=== PATIENT | female | born 1960 | race Caucasian/White ===

== ENCOUNTER 2017-11-03 13:29 | Inpatient (IN) | payer MEDICAID, MEDICARE, OTHER ==
[~2017-11-03] VITALS: Ht 167.6 cm; Wt 91.6 kg
[~2017-11-03 13:29] MED LIST: ESTR0.3T26 PO; PROG200C15 PO; [UNRECOGNIZED DRUG - CODE] PO
[2017-11-03 13:54] LABS: BASOPHILS % (AUTO) 0.3 % (0.0-2.0); EOSINOPHILS % (AUTO) 1.5 % (0.0-6.0); HEMATOCRIT 37 % (33-45); HEMOGLOBIN 13.4 g/dL (11.5-14.8); LYMPHOCYTES # (AUTO) 1.6 /CMM (0.8-4.8); MEAN CORPUSCULAR HGB CONC 37 g/dl (31.0-36.0); MEAN CORPUSCULAR VOLUME 86 fL (82-100); MONOCYTES # (AUTO) 0.6 /CMM (0.1-1.30); MONOCYTES % (AUTO) 6.2 % (2.0-12.0); NEUTROPHILS # (AUTO) 7.1 /CMM (1.8-8.9); PLATELET COUNT (AUTO) 203 /CMM (150-450); RDW COEFFICIENT OF VARIATION 12.8 (11.5-15.0); RED BLOOD CELL COUNT(AUTO) 4.28 MIL/uL (4.0-5.2); WHITE BLOOD COUNT (AUTO) 9.4 K/uL (4.3-11.0)
[2017-11-03] MEDS ORDERED: OLANZAPINE 10 MG VIAL IM ONE ×2 (14:00→14:06)
[2017-11-03 14:02] LABS: CALCIUM, SERUM 9.6 mg/dL (8.5-10.1); CARBON DIOXIDE 22 mmol/L (21-32); CHLORIDE 105 mmol/L (98-107); CREATININE 1.2 mg/dL (0.6-1.3); GLUCOSE 109 mg/dL (74-106); POTASSIUM 3.7 mmol/L (3.5-5.1); SODIUM SERUM 138 mmol/L (136-145); UREA NITROGEN, BLOOD 23 mg/dL (7-18)
[2017-11-03 14:17] LABS: ACETAMINOPHEN 0 ug/ml (10-30); ALANINE AMINOTRANSFERASE 29 U/L (12-78); ALBUMIN 3.6 g/dL (3.4-5.0); ALCOHOL, BLOOD < 3 mg/dL (0-0); ALKALINE PHOSPHATASE 50 U/L (46-116); ASPARTATE AMINOTRANSFERASE 15 U/L (15-37); BILIRUBIN,DIRECT 0.1 mg/dL (0.0-0.2); BILIRUBIN,TOTAL 0.3 mg/dL (0.2-1.0)
--- NOTE | 2017-11-03 14:46 | NUR ---
GPS 211-B, LUDA SHAW
--- NOTE | 2017-11-03 15:37 | NUR ---
REPORT GIVENT TO MARION RODRIGUEZ FOR CONTINUITY OF CARE
--- NOTE | 2017-11-03 15:41 | NUR ---
PT TRANSPORTED BY JEANETTE TONY TO [facility]
--- NOTE | 2017-11-03 16:22 | NUR ---
GPS RN ADMITTING NOTE: PATIENT ADMITTED FROM ER PRIOR HOME PLACED ON 5150 HOLD FOR DTO, PER HOLD PER FAMILY PT BEEN BECOMING MORE AGITATED AND PARANOID THREATENING NEIGHBORS BELIEVES HER NEIGHBORS WORKING WITH [employer] AND SHE NEEDS TO PROTECT HERSELF ,FAMILY REPORTS NEIGHBORS IS AFRAID OF HER.UPON FACE TO FACE EVALUATION PATIENT A/O X2 PARANOID, CALM ,PT STATED I HACE SCHIZOPHRENIA. DR LARES NOTIFIED WITH STANDING ORDERS . ALL BELONGINGS CHECKED NO CONTRABAND FOUND.WILL CONTINUE MONITORING FOR SAFETY AND BEHAVIOR Q 15 MIN
[2017-11-03 16:48] VITALS: BP 109/86
--- NOTE | 2017-11-03 16:55 | NUR ---
GPS/RN BRENT MIKE STAFF SUBMARINE WARFARE OFFICER CALLED FOR ADMITTING ORDERS VIA [employer]CHANGE ADN MADE AWARE OF ADMISSION. SHE WILL RECONCILE THE MEDS.
[2017-11-03] MEDS ORDERED: MAGNESIUM HYDROXIDE 30 ML UDC PO PRN ×2 (17:00→17:30)
[2017-11-03] MEDS ORDERED: LORAZEPAM 0.5 MG TABLET PO PRN (17:00)
[2017-11-03] MEDS ORDERED: MAG HYDROX/AL HYDROX/SIMETH 30 ML UDC PO PRN ×2 (17:00→17:30)
[2017-11-03] MEDS ORDERED: Z GUARD REMEDY 2 OZ OINT TP PRN (17:30)
[2017-11-03] MEDS ORDERED: ACETAMINOPHEN 325 MG TABLET PO PRN (17:30)
[2017-11-03] MEDS ORDERED: ONDANSETRON HCL/PF 4 MG/2 ML VIAL IVP PRN (17:30)
[2017-11-03 20:00] VITALS: BP 114/72
[2017-11-04 07:02] LABS: BASOPHILS % (AUTO) 0.3 % (0.0-2.0); EOSINOPHILS % (AUTO) 1.5 % (0.0-6.0); HEMATOCRIT 40 % (33-45); HEMOGLOBIN 13.4 g/dL (11.5-14.8); LYMPHOCYTES % (AUTO) 13.9 % (20.0-44.0); MEAN CORPUSCULAR HGB CONC 34 g/dl (31.0-36.0); MEAN CORPUSCULAR VOLUME 88 fL (82-100); MONOCYTES # (AUTO) 0.6 /CMM (0.1-1.30); MONOCYTES % (AUTO) 8.3 % (2.0-12.0); NEUTROPHILS # (AUTO) 5.4 /CMM (1.8-8.9); PLATELET COUNT (AUTO) 207 /CMM (150-450); RDW COEFFICIENT OF VARIATION 13.8 (11.5-15.0); RED BLOOD CELL COUNT(AUTO) 4.53 MIL/uL (4.0-5.2); WHITE BLOOD COUNT (AUTO) 7.1 K/uL (4.3-11.0)
[2017-11-04 07:28] LABS: THYROID STIMULATING HORMONE 3.577 uIU/mL (0.358-3.74)
[2017-11-04 07:34] LABS: CALCIUM, SERUM 9.1 mg/dL (8.5-10.1); CREATININE 1.1 mg/dL (0.6-1.3); MAGNESIUM 1.9 mg/dL (1.8-2.4); PHOSPHORUS 2.7 mg/dL (2.5-4.9)
[2017-11-04 07:55] VITALS: BP 113/68
[2017-11-04] MEDS: NICOTINE PATCH (14MG) 14 MG PATCH.TD24 TD SCH (08:34)
[2017-11-04] MEDS: LEVOTHYROXINE SODIUM 125 MCG TABLET PO SCH (08:34)
[2017-11-04] MEDS ORDERED: ESTROGENS ESTERIFIED PO SCH (09:00)
[2017-11-04] MEDS ORDERED: PROGESTERONE,MICRONIZED 100 MG CAPSULE PO SCH ×2 (09:00)
[2017-11-04] MEDS: risperiDONE 1 MG TABLET PO SCH ×2 (12:37→16:09)
[2017-11-04] MEDS: BENZTROPINE MESYLATE (1 MG) 1 MG TABLET PO SCH (16:09)
[2017-11-04 16:13] VITALS: BP 116/76
[2017-11-04 20:00] VITALS: BP 99/62
[2017-11-04] MEDS: QUETIAPINE FUMARATE 100 MG TABLET PO SCH (22:16)
[2017-11-05 08:01] VITALS: BP 150/68
[2017-11-05] MEDS: BENZTROPINE MESYLATE (1 MG) 1 MG TABLET PO SCH ×2 (08:47→16:37)
[2017-11-05] MEDS: risperiDONE 1 MG TABLET PO SCH (08:47)
[2017-11-05] MEDS: NICOTINE PATCH (14MG) 14 MG PATCH.TD24 TD SCH (08:49)
[2017-11-05] MEDS: LEVOTHYROXINE SODIUM 125 MCG TABLET PO SCH (09:25)
[2017-11-05] MEDS ORDERED: risperiDONE 1 MG TABLET PO SCH (13:00)
--- NOTE | 2017-11-05 13:30 | NUR ---
RN NOTES ASKED PATIENT IF SHE CAN PROVIDE HER HOME MEDICATION PROMETRIUM PATIENT SAID SHE WILL CALL TO BRING IT. PHARMACIST SUSAN MADE AWARE.
[2017-11-05 16:14] VITALS: BP 114/56
[2017-11-05 19:47] VITALS: BP_SYST 127; BP_SYST 131; BP_DIAS 69; BP_DIAS 75
[2017-11-05] MEDS: QUETIAPINE FUMARATE 100 MG TABLET PO SCH (21:19)
[2017-11-06 08:00] VITALS: BP 102/71
[2017-11-06] MEDS: LEVOTHYROXINE SODIUM 125 MCG TABLET PO SCH (08:43)
[2017-11-06] MEDS: BENZTROPINE MESYLATE (1 MG) 1 MG TABLET PO SCH ×2 (08:43→16:54)
[2017-11-06] MEDS: NICOTINE PATCH (14MG) 14 MG PATCH.TD24 TD SCH (08:43)
[2017-11-06] MEDS: risperiDONE 1 MG TABLET PO SCH ×3 (09:08→16:54)
--- NOTE | 2017-11-06 12:21 | NUR ---
SW contacted pts , Farhad Hoang for collateral information regarding events that led to pts hospitalization (i.e. tarasoff). CAT received a voicemail recording stating, "person is unavailable right now please try again later." CAT also contacted pts contact telephone # (found on face sheet) and received a recording stating, "You have reached a # that has been disconnected or is no longer in service." CAT will follow up.
--- NOTE | 2017-11-06 12:36 | NUR ---
CAT contacted the [employer], [address] [place] [address] [phone] for a tarasoff report. CAT spoke to [facility] Physical Therapist, Junior (employee # [id number]) who obtained information provided from 5150 report. Per Officer Junior, another traffic officer will contact this writing CAT back for additional information. CAT will follow up.
--- NOTE | 2017-11-06 13:56 | NUR ---
CAT received a call back from Officer Burt requesting additional information regarding pts neighbor. SW provided information found on the 4290 report. Officer Burt reported going out and conducting a visit (to the pts home) and speaking with her in order to gather additional information regarding the neighbor. Officer Burt agreed to call SW back with an update. CAT will follow up.
[2017-11-06] MEDS: DIVALPROEX SODIUM 250 MG TABLET.DR PO SCH ×2 (14:43→16:54)
[2017-11-06 16:00] VITALS: BP 113/57
--- NOTE | 2017-11-06 17:01 | NUR ---
Initial Discharge Plan: Pt resides at [address] [place] [id number]; ; husbands cell #. Upon discharge pt would like to return home. SW contacted pts , Farhad Hoang, for collateral information. Pts agreed that pt could return home once she is stable. Pts also agreed to pick her up from the hospital. SW will follow up to ensure pt is safely and properly discharged.
--- NOTE | 2017-11-06 17:02 | NUR ---
CAT received a call back from Officer Burt who stated having visited pt 's home for additional identifying information about the neighbor. Per Officer, pts reported not knowing who Melissa was. In addition, Officer Burt reported having conducted a visit to the neighbors home and the person who answered the door denied a person named Melissa lived in the home. SW informed Officer Burt having talked to pts on this date and he admitting that pt has had issues with the "new neighbor." Officer Burt agreed to follow up pts regarding information disclosed. CAT asked Officer Burt for a follow up call. SW will follow up to ensure pt is safely and adequately discharged.
[2017-11-06 19:34] VITALS: BP 132/76
[2017-11-06] MEDS: QUETIAPINE FUMARATE 100 MG TABLET PO SCH (22:00)
--- NOTE | 2017-11-06 22:30 | NUR ---
GPS RN NOTES: PATIENT REFUSED HER SEROQUEL 100 MG PO, PER PATIENT IT MAKES HER VERY SLEEPY DURING THE DAY AND SHE DOESN'T LIKE THE EFFECTS OF IT. OFFERED IT TO THE PATIENT 3X BUT SHE STILL REFUSED. WILL ENDORSE THE SAID COMPLAIN TO THE DAY SHIFT NURSE.
[2017-11-07 08:00] VITALS: BP 122/70
[2017-11-07] MEDS: BENZTROPINE MESYLATE (1 MG) 1 MG TABLET PO SCH ×2 (08:15→16:49)
[2017-11-07] MEDS: LEVOTHYROXINE SODIUM 125 MCG TABLET PO SCH (08:15)
[2017-11-07] MEDS: risperiDONE 1 MG TABLET PO SCH ×4 (08:15→20:37)
[2017-11-07] MEDS: DIVALPROEX SODIUM 250 MG TABLET.DR PO SCH ×2 (08:15→12:09)
[2017-11-07] MEDS: NICOTINE PATCH (14MG) 14 MG PATCH.TD24 TD SCH (08:17)
--- NOTE | 2017-11-07 14:34 | NUR ---
SW met with pts , Farhad Hoang, in the hospital. Pts brought in pts medications for the nursing staff. SW discussed discharge plan with pt and pts which they agreed pt would return home. Pt agreed to discharge to her when she was ready to do so. SW will ensure pt is safely discharged.
[2017-11-07 16:00] VITALS: BP_SYST 100; BP_SYST 141; BP_DIAS 60; BP_DIAS 88
[2017-11-07 20:01] VITALS: BP 160/76
[2017-11-07] MEDS: DIVALPROEX SODIUM 500 MG TABLET.DR PO SCH (20:37)
[2017-11-08] MEDS: ACETAMINOPHEN 325 MG TABLET PO PRN (01:38)
[2017-11-08 01:40] VITALS: BP 129/98
[2017-11-08 06:57] LABS: BASOPHILS % (AUTO) 0.1 % (0.0-2.0); EOSINOPHILS % (AUTO) 1.7 % (0.0-6.0); HEMATOCRIT 39 % (33-45); HEMOGLOBIN 13.3 g/dL (11.5-14.8); LYMPHOCYTES # (AUTO) 1.1 /CMM (0.8-4.8); LYMPHOCYTES % (AUTO) 14.1 % (20.0-44.0); MEAN CORPUSCULAR HGB CONC 35 g/dl (31.0-36.0); MEAN CORPUSCULAR VOLUME 87 fL (82-100); MONOCYTES # (AUTO) 0.6 /CMM (0.1-1.30); MONOCYTES % (AUTO) 7.1 % (2.0-12.0); NEUTROPHILS # (AUTO) 6.1 /CMM (1.8-8.9); PLATELET COUNT (AUTO) 185 /CMM (150-450); RDW COEFFICIENT OF VARIATION 13.4 (11.5-15.0); RED BLOOD CELL COUNT(AUTO) 4.46 MIL/uL (4.0-5.2); WHITE BLOOD COUNT (AUTO) 7.9 K/uL (4.3-11.0)
[2017-11-08 07:20] LABS: ALBUMIN 3.4 g/dL (3.4-5.0); BILIRUBIN,TOTAL 0.3 mg/dL (0.2-1.0); CALCIUM, SERUM 9.3 mg/dL (8.5-10.1); CREATININE 0.9 mg/dL (0.6-1.3); POTASSIUM 4.2 mmol/L (3.5-5.1); TOTAL PROTEIN, SERUM 7.9 g/dL (6.4-8.2)
[2017-11-08 08:00] VITALS: BP 142/73
[2017-11-08] MEDS: BENZTROPINE MESYLATE (1 MG) 1 MG TABLET PO SCH ×2 (08:01→16:45)
[2017-11-08] MEDS: risperiDONE 1 MG TABLET PO SCH ×4 (08:02→20:16)
[2017-11-08] MEDS: LEVOTHYROXINE SODIUM 125 MCG TABLET PO SCH (08:02)
[2017-11-08] MEDS: DIVALPROEX SODIUM 250 MG TABLET.DR PO SCH ×2 (08:02→12:38)
[2017-11-08] MEDS: NICOTINE PATCH (14MG) 14 MG PATCH.TD24 TD SCH (08:03)
--- NOTE | 2017-11-08 08:45 | NUR ---
GPS RN NOTE: PATIENT PACING IN THE HALLWAY CRYING AND YELLING, ANXIOUS , ATIVAN 1 MG PO PRN GIVEN PER ORDER ,VSS , WILL CONTINUE MONITORING FOR SAFETY AND BEHAVIOR Q 15 MIN
[2017-11-08] MEDS: MENEST PO SCH (11:30)
--- NOTE | 2017-11-08 14:42 | NUR ---
CAT contacted Araseli Rosario [phone] Mgr. for reauthorization on this date. CAT provided clinicals over [facility]. CAT will follow up.
--- NOTE | 2017-11-08 15:52 | NUR ---
SW received a call from Araseli Rosario [phone] Fan Mail Editor. confirming that pt was approved until 11/10/17. Collection Systems Administrator will follow up on 11/10/17 per Erinn.
[2017-11-08 16:00] VITALS: BP 108/56
[2017-11-08 20:00] VITALS: BP 120/82
[2017-11-08] MEDS: DIVALPROEX SODIUM 500 MG TABLET.DR PO SCH (20:16)
[2017-11-08 20:18] VITALS: BP 120/82
[2017-11-08 22:49] VITALS: BP 110/67
[2017-11-08] MEDS: TEMAZEPAM 7.5 MG CAPSULE PO PRN (23:46)
[2017-11-09] MEDS: LEVOTHYROXINE SODIUM 125 MCG TABLET PO SCH (07:30)
[2017-11-09] MEDS: risperiDONE 1 MG TABLET PO SCH ×4 (08:00→21:01)
[2017-11-09] MEDS: DIVALPROEX SODIUM 250 MG TABLET.DR PO SCH ×2 (08:00→13:03)
[2017-11-09 08:57] VITALS: BP 130/80
[2017-11-09] MEDS: NICOTINE PATCH (14MG) 14 MG PATCH.TD24 TD SCH (09:23)
[2017-11-09] MEDS: BENZTROPINE MESYLATE (1 MG) 1 MG TABLET PO SCH ×2 (09:23→16:30)
[2017-11-09] MEDS: MENEST PO SCH (09:25)
[2017-11-09 16:00] VITALS: BP_SYST 122; BP_SYST 142; BP_DIAS 58; BP_DIAS 68
[2017-11-09] MEDS: ACETAMINOPHEN 325 MG TABLET PO PRN (18:35)
[2017-11-09 20:00] VITALS: BP 125/65
[2017-11-09] MEDS: DIVALPROEX SODIUM 500 MG TABLET.DR PO SCH (21:01)
[2017-11-09] MEDS: TEMAZEPAM 7.5 MG CAPSULE PO PRN (22:11)
[2017-11-10 08:00] VITALS: BP 132/70
[2017-11-10] MEDS: risperiDONE 1 MG TABLET PO SCH ×4 (08:37→20:35)
[2017-11-10] MEDS: LEVOTHYROXINE SODIUM 125 MCG TABLET PO SCH (08:37)
[2017-11-10] MEDS: DIVALPROEX SODIUM 250 MG TABLET.DR PO SCH ×2 (08:37→13:01)
[2017-11-10] MEDS: MENEST PO SCH (08:38)
[2017-11-10] MEDS: BENZTROPINE MESYLATE (1 MG) 1 MG TABLET PO SCH ×2 (08:38→16:08)
[2017-11-10] MEDS: NICOTINE PATCH (14MG) 14 MG PATCH.TD24 TD SCH (09:00)
--- NOTE | 2017-11-10 11:21 | NUR ---
CAT contacted Araseli Rosario [phone] Manual Lathe Operator. for reauthorization on this date. CAT provided clinicals over [facility]. CAT will follow up.
--- NOTE | 2017-11-10 15:51 | NUR ---
UR REview: CAT received a call back form Araseli Rosario [phone] Passenger Vessel Chef. authorizing pt for 3 dya. F/U on 11/13/17. Araseli stated she would call CAT Monday.
[2017-11-10 16:00] VITALS: BP 133/73
[2017-11-10 20:00] VITALS: BP 104/57
[2017-11-10] MEDS ORDERED: DIVALPROEX SODIUM 500 MG TABLET.DR PO SCH (20:00)
[2017-11-10] MEDS: TEMAZEPAM 7.5 MG CAPSULE PO PRN (21:29)
[2017-11-11] MEDS: BENZTROPINE MESYLATE (1 MG) 1 MG TABLET PO SCH ×2 (08:16→16:28)
[2017-11-11] MEDS: DIVALPROEX SODIUM 250 MG TABLET.DR PO SCH ×2 (08:16→12:16)
[2017-11-11] MEDS: risperiDONE 1 MG TABLET PO SCH ×3 (08:16→20:43)
[2017-11-11] MEDS: LEVOTHYROXINE SODIUM 125 MCG TABLET PO SCH (08:16)
[2017-11-11] MEDS: MENEST PO SCH (08:18)
[2017-11-11] MEDS: NICOTINE PATCH (14MG) 14 MG PATCH.TD24 TD SCH (08:19)
[2017-11-11 08:32] VITALS: BP 103/51
[2017-11-11] MEDS: ACETAMINOPHEN 325 MG TABLET PO PRN (13:34)
[2017-11-11 16:36] VITALS: BP 136/73
[2017-11-11 20:00] VITALS: BP 123/66
--- NOTE | 2017-11-11 20:00 | NUR ---
GPS/BENCH MOLDER; RECEIVED PT IN THE DINING ROOM SITTING ON THE CHAIR WATCHING TV. AWAKE, ALERT AND VERBALLY RESPONSIVE. BREATHING NON LABORED. CONTINUE TO MONITOR.
[2017-11-11] MEDS: DIVALPROEX SODIUM 500 MG TABLET.DR PO SCH (20:38)
[2017-11-12 08:34] VITALS: BP 126/85
[2017-11-12] MEDS: risperiDONE 1 MG TABLET PO SCH ×3 (08:58→21:00)
[2017-11-12] MEDS: BENZTROPINE MESYLATE (1 MG) 1 MG TABLET PO SCH ×2 (08:58→16:06)
[2017-11-12] MEDS: DIVALPROEX SODIUM 250 MG TABLET.DR PO SCH ×2 (08:58→12:35)
[2017-11-12] MEDS: LEVOTHYROXINE SODIUM 125 MCG TABLET PO SCH (08:58)
[2017-11-12] MEDS: NICOTINE PATCH (14MG) 14 MG PATCH.TD24 TD SCH (08:59)
[2017-11-12] MEDS: MENEST PO SCH (09:00)
[2017-11-12 16:19] VITALS: BP 100/59
[2017-11-12 20:30] VITALS: BP 117/68
--- NOTE | 2017-11-12 21:00 | NUR ---
GPS RN NOTES: PATIENT'S MEDICATION, RISPERDAL 3MG SCHEDULED TO BE GIVEN AT 2000 IS NOT AVAILABLE FROM THE OMNICE. THE STOCK REMAINING AT [facility] IS 2 TABLETS OF THE RISPERDAL 1MG PREPARATION. NURSE SUSTAINABLE PRODUCTS MARKETING MANAGER CYNDY AND 3WEST CHARGE NURSE TRIED TO PULL THE MEDICATION FROM [facility] OMNICE HOWEVER, PATIENT'S NAME IS NOT SHOWING IN THE GLOBAL LIST. SO, PHARMACY AFTER HOURS CALLED FOR ANY SOLUTIONS TO THE MATTER, PERSONNEL STATED THAT HE'S GONNA TRY TO PUT AN ORDER FOR LIQUID FORM OF RISPERDAL. HOWEVER THE ORDER CHANGE DID NOT SHOW ON THE WILDLIFE FORENSIC GENETICIST'S EMAR. CALLED [facility] SOFTWARE DEVELOPERSTEPHANIA DIGGS, THE SAME THING HAPPENED THAT PATIENT DOES NOT SHOW UP IN THE GLOBAL LIST AT [facility]. WILL INFORM THE DAY SHIFT NURSE FOR CONTINUITY OF CARE.
[2017-11-12] MEDS: DIVALPROEX SODIUM 500 MG TABLET.DR PO SCH (21:37)
[2017-11-13 07:26] LABS: BASOPHILS % (AUTO) 0.3 % (0.0-2.0); EOSINOPHILS % (AUTO) 4.5 % (0.0-6.0); HEMATOCRIT 36 % (33-45); HEMOGLOBIN 12.4 g/dL (11.5-14.8); LYMPHOCYTES # (AUTO) 0.9 /CMM (0.8-4.8); LYMPHOCYTES % (AUTO) 17.1 % (20.0-44.0); MEAN CORPUSCULAR HGB CONC 34 g/dl (31.0-36.0); MEAN CORPUSCULAR VOLUME 87 fL (82-100); MONOCYTES # (AUTO) 0.5 /CMM (0.1-1.30); MONOCYTES % (AUTO) 8.6 % (2.0-12.0); NEUTROPHILS # (AUTO) 3.8 /CMM (1.8-8.9); NEUTROPHILS % (AUTO) 69.5 % (43.0-81.0); PLATELET COUNT (AUTO) 187 /CMM (150-450); RDW COEFFICIENT OF VARIATION 13.1 (11.5-15.0); RED BLOOD CELL COUNT(AUTO) 4.14 MIL/uL (4.0-5.2); WHITE BLOOD COUNT (AUTO) 5.5 K/uL (4.3-11.0)
[2017-11-13 07:43] LABS: BILIRUBIN,TOTAL 0.3 mg/dL (0.2-1.0); CALCIUM, SERUM 9.1 mg/dL (8.5-10.1); MAGNESIUM 1.9 mg/dL (1.8-2.4); POTASSIUM 4.3 mmol/L (3.5-5.1); TOTAL PROTEIN, SERUM 7.2 g/dL (6.4-8.2)
[2017-11-13] MEDS: LEVOTHYROXINE SODIUM 125 MCG TABLET PO SCH (08:26)
[2017-11-13] MEDS: BENZTROPINE MESYLATE (1 MG) 1 MG TABLET PO SCH ×2 (08:26→16:18)
[2017-11-13] MEDS: DIVALPROEX SODIUM 250 MG TABLET.DR PO SCH ×2 (08:26→13:07)
[2017-11-13] MEDS: risperiDONE 1 MG TABLET PO SCH ×3 (08:26→20:16)
[2017-11-13] MEDS: MENEST PO SCH (08:27)
[2017-11-13] MEDS: NICOTINE PATCH (14MG) 14 MG PATCH.TD24 TD SCH (08:27)
[2017-11-13 09:31] VITALS: BP 113/55
[2017-11-13 16:00] VITALS: BP 130/55
--- NOTE | 2017-11-13 19:30 | NUR ---
GPSRN FOUND PATIENT IN ACTIVITY ROOM, RESTING QUIETLY. COOPERATIVE, AMBULATORY. BEHAVIOR ACCEPTABLE ANSWERS QUESTIONS APPROPRIATELY. DENIES ANY DISCOMFORTS. AWARE OF MEDS SHE TAKES. NO OTHER NEEDS MADE, CONTINUED.
[2017-11-13 19:59] VITALS: BP 140/74
[2017-11-13] MEDS: DIVALPROEX SODIUM 500 MG TABLET.DR PO SCH (20:17)
--- NOTE | 2017-11-13 20:30 | NUR ---
GPSRN DUE MEDS ADMINISTERED, WENT BACK INTO HER ROOM.
[2017-11-13] MEDS ORDERED: risperiDONE LIQUID 1 MG/ML ML PO ONE ×2 (21:30)
--- NOTE | 2017-11-13 21:56 | NUR ---
GPSRN AMBULATING AROUND HALLWAYS TALKING TO SELF, REMAINS COOPERATIVE AND CALM. NO NEEDS ATTENDED. CLOSELY WATCHED.
--- NOTE | 2017-11-13 22:30 | NUR ---
GPSRN SLEEPING OF THIS TIME, EASILY WAKES UP WHEN CHECKED.
--- NOTE | 2017-11-14 06:40 | NUR ---
GPSRN FULLY AWAKE, NO NEEDS MADE.
[2017-11-14] MEDS: DIVALPROEX SODIUM 250 MG TABLET.DR PO SCH (08:05)
[2017-11-14] MEDS: BENZTROPINE MESYLATE (1 MG) 1 MG TABLET PO SCH (08:05)
[2017-11-14] MEDS: risperiDONE 1 MG TABLET PO SCH (08:05)
[2017-11-14] MEDS: LEVOTHYROXINE SODIUM 125 MCG TABLET PO SCH (08:05)
[2017-11-14] MEDS: NICOTINE PATCH (14MG) 14 MG PATCH.TD24 TD SCH (08:06)
[2017-11-14] MEDS: MENEST PO SCH (08:06)
[2017-11-14 08:38] VITALS: BP 121/76
--- NOTE | 2017-11-14 10:15 | NUR ---
GPS/RN PATIENT CLEARED FOR DISCHARGE HOME BY DR LARES AND DR MIKE. MEDICATIONS RECONCILED AND PRESCRIPTIONS INCLUDED IN PACKET. PER PATIENT, NO MEDICAL PRESCRIPTIONS NEEDED. PSYCHIATRIC PRESCRIPTIONS FAXED TO [facility]. EXIT CARE, MEDICATIONS AND AFTER CARE PLAN EXPLAINED TO PATIENT, VERBALIZED UNDERSTANDING. BELONGINGS AND HOME MEDICATIONS RETURNED TO PATIENT. SKIN INTACT, PATIENT DENIES SI/HI/AH UPON DISCHARGE, PSYCHIATRIC TREATMENT PLANS MET. LEFT UNIT CALM, COOPERATIVE, STABLE CONDITION,NO DISTRESS NOTED WITH CONE BAKER MACHINE AND AT SIDE.
--- NOTE | 2017-11-14 16:21 | NUR ---
Discharge Plan: Pt will discharge home [address] [facility] [id number], via private transportation at 10:00 am. Pts Farhad Fair will pick her up. Pt has been notified and is in agreement. Pt was referred to the following doctors for after care: Psychiatrist: Dr. Joesph Perez; and Telephone Services Sales Representative: Dr. Elsa Blackman, [address] [facility] [address]; . Pt agreed to follow up with her doctors, "once I get home."
== END 2017-11-14 10:00 | disposition home or self-care (01) | DRG 885 ==
LOC: ER 13:31 → GPS 15:04
PROVIDERS: ADMIT Psychiatry & Neurology Psychosomatic Medicine; ATTEND Registered Nurse
DX: F25.0 Schizoaffective disorder, bipolar type (principal); N17.9 Acute kidney failure, unspecified; E88.09 Other disorders of plasma-protein metabolism, not elsewhere classified; E66.01 Morbid (severe) obesity due to excess calories; F23 Brief psychotic disorder; E03.9 Hypothyroidism, unspecified; F17.210 Nicotine dependence, cigarettes, uncomplicated; Z91.19 Patient's noncompliance with other medical treatment and regimen; I10 Essential (primary) hypertension; Z68.32 Body mass index [BMI] 32.0-32.9, adult; F31.9 Bipolar disorder, unspecified
CPT/HCPCS: 36415; 80048-TC; 80053-TC; 80076-TC; 80164-TC; 83735-TC; 84100-TC; 84443-TC; 85025-TC; 87081-TC; A4606; G0480; J3490; Z7610